=== PATIENT | female | born 1955 | race Caucasian/White ===

== ENCOUNTER → 2018-04-21 | Outpatient (CLI) | payer BC ==
--- NOTE | 2018-04-30 09:57 | Diagnostic Imaging Report ---
INDICATION: Routine screening. COMPARISON is made with prior mammogram from 03/25/2017 and 03/26/2016. 2-D and 3-D bilateral screening mammography was performed with CAD. Both breasts remain heterogeneously dense, limiting the sensitivity of mammography. Circumscribed benign-appearing nodules appear stable bilaterally. Microcalcifications in both breasts appear stable. No new mass or malignant-appearing microcalcifications are seen. The axillae are unremarkable. IMPRESSION: BI-RADS category 2 No mammographic features suspicious for malignancy are identified. ACR BI-RADS Category 2: Benign findings. Result letter will be mailed to the patient. Note: At least 10% of breast cancer is not imaged by mammography. Dictated by: Dictated on workstation # [id number]
== END ==
LOC: RAD 08:04
PROVIDERS: ATTEND Obstetrics & Gynecology
DX: Z12.31 Encounter for screening mammogram for malignant neoplasm of breast (principal)
CPT/HCPCS: 77067

== ENCOUNTER → 2018-10-27 | Outpatient (CLI) | payer OTHER, BC ==
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
== END ==
LOC: RAD 11:48
PROVIDERS: ATTEND Physician Assistant
DX: M47.812 Spondylosis without myelopathy or radiculopathy, cervical region (principal); R07.9 Chest pain, unspecified; M79.645 Pain in left finger(s); V89.2XXA Person injured in unspecified motor-vehicle accident, traffic, initial encounter
CPT/HCPCS: 71046; 72040; 73140

== ENCOUNTER → 2020-11-10 | Outpatient (CLI) | payer MEDICARE, OTHER ==
--- NOTE | 2020-11-10 13:12 | Diagnostic Imaging Report ---
INDICATION: Routine screening. COMPARISON is made with prior mammograms from 04/21/2018 and 03/25/2017. 2-D and 3-D bilateral screening mammography was performed with CAD. Both breasts are heterogeneously dense, limiting the sensitivity of mammography. Benign nodules in the upper and outer aspects of both breasts are stable. No new mass or malignant appearing microcalcifications are seen. There are benign calcifications bilaterally. Axillae are unremarkable. IMPRESSION: BI-RADS Category 2 No mammographic features suspicious for malignancy are calcifications ACR BI-RADS Category 2: Benign findings. Result letter will be mailed to the patient. Note: At least 10% of breast cancer is not imaged by mammography. Dictated by: Dictated on workstation # [id number]
== END ==
LOC: RAD 08:00
PROVIDERS: ATTEND Obstetrics & Gynecology
DX: Z12.31 Encounter for screening mammogram for malignant neoplasm of breast (principal)
CPT/HCPCS: 77063; 77067

== ENCOUNTER → 2021-02-20 | Outpatient (CLI) | payer MEDICARE, OTHER ==
[~2021-02-20] VITALS: Ht 157 cm; Wt 70.0 kg
[~2021-02-20] MED LIST: ACETAMINOPHEN 500 MG TAB (TYLENOL) PO PRN; CASIRIVIMAB/IMDEVIMAB 1,200 MG in NS (IVPB) 250 ML IV ONE; EPINEPHrine INJECTION 1 MG/ML AMP IM PRN; ONDANSETRON 4 MG/2 ML (SDV) Z0FRAN IV PRN; diphenhydrAMINE 50 MG/ML INJ (BENADRYL) IV PRN
[2021-02-20 12:05] VITALS: BP 151/74
[2021-02-20 13:18] VITALS: BP 137/59
== END ==
LOC: INFUSION 12:02
PROVIDERS: ATTEND Nurse Practitioner Family
DX: Z23 Encounter for immunization (principal); U07.1 COVID-19

== ENCOUNTER → 2022-02-22 | Outpatient (CLI) | payer MEDICARE, OTHER ==
--- NOTE | 2022-02-23 09:10 | Diagnostic Imaging Report ---
3D bilateral screening mammogram with CAD. The current study was also evaluated with a Computed Aided Detection (CAD) system. COMPARISON: This study was compared to the prior exams of 11/10/2020 and 04/21/2018. At this time, there are no current complaints. FINDINGS: The fibroglandular tissue in both breasts is heterogeneously dense. This does limit the sensitivity of this exam. When compared to the previous study there does not appear to have been any significant change. There is no primary or secondary sign of malignancy noted. IMPRESSION: There is no evidence for malignancy. BI-RADS CATEGORY: 1 NEGATIVE ACR BI-RADS Category 1: Negative. Result letter will be mailed to the patient. Note: At least 10% of breast cancer is not imaged by mammography. Dictated by: Dictated on workstation # [id number]
== END ==
LOC: RAD 10:45
PROVIDERS: ATTEND Physician Assistant
DX: Z12.31 Encounter for screening mammogram for malignant neoplasm of breast (principal)
CPT/HCPCS: 77063; 77067

== ENCOUNTER → 2022-12-20 | Outpatient (CLI) | payer MEDICARE, OTHER ==
--- NOTE | 2022-12-20 16:58 | Diagnostic Imaging Report ---
INDICATION: Left heel pain. 2 views of the left calcaneus show no fracture or dislocation. IMPRESSION: Negative left calcaneus. Dictated by: Dictated on workstation # [id number]
== END ==
LOC: RAD 10:34
PROVIDERS: ATTEND Physician Assistant
DX: M79.605 Pain in left leg (principal)
CPT/HCPCS: 73650

== ENCOUNTER → 2023-05-09 | Outpatient (CLI) | payer MEDICARE, OTHER ==
--- NOTE | 2023-05-09 16:10 | Diagnostic Imaging Report ---
INDICATION: Routine screening. Comparison is made with prior mammogram from 02/22/2022 and 11/10/2020. 2-D and 3-D bilateral screening mammography was performed with CAD. Both breasts are heterogeneously dense, limiting the sensitivity of mammography. Circumscribed nodules in both breasts appears stable. No spiculated mass or malignant-appearing microcalcifications are identified. There are benign calcifications bilaterally. Axillae are unremarkable. IMPRESSION: No mammographic features suspicious for malignancy are identified. ACR BI-RADS Category 2: Benign findings. Result letter will be mailed to the patient. Note: At least 10% of breast cancer is not imaged by mammography. BI-RADS Category 2 Dictated by: Dictated on workstation # [id number]
== END ==
LOC: RAD 11:11
PROVIDERS: ATTEND Physician Assistant
DX: Z12.31 Encounter for screening mammogram for malignant neoplasm of breast (principal)
CPT/HCPCS: 77063; 77067